=== PATIENT | female | born 1995 | race Caucasian/White ===

== ENCOUNTER 2020-12-13 04:12 | Emergency (ER) | payer OTHER ==
[2020-12-13 05:50] LABS: HEMOGLOBIN 11.1 gm/dl (12.3-15.3); RED BLOOD COUNT 3.29 M/UL (4.00-5.10); WHITE BLOOD COUNT 13.2 K/UL (4.5-11.0)
[2020-12-13 06:34] LABS: BUN/CREATININE RATIO 17 (0-10)
== END 2020-12-13 07:27 | disposition home or self-care (01) ==
LOC: ER1 04:12
PROVIDERS: Student in an Organized Health Care Education/Training Program
DX: O99.512 Diseases of the respiratory system complicating pregnancy, second trimester (principal); J40 Bronchitis, not specified as acute or chronic; O99.332 Smoking (tobacco) complicating pregnancy, second trimester; F17.210 Nicotine dependence, cigarettes, uncomplicated; Z3A.27 27 weeks gestation of pregnancy; Z20.822 Contact with and (suspected) exposure to COVID-19
CPT/HCPCS: 0240U; 71045; 80053; 82550; 82553; 83874; 84484; 85025; 99285

== ENCOUNTER 2021-03-20 00:50 | Emergency (ER) | payer OTHER ==
[2021-03-20 01:57] LABS: RED BLOOD COUNT 3.38 M/UL (4.00-5.10); WHITE BLOOD COUNT 9.5 K/UL (4.5-11.0)
[2021-03-20 02:17] LABS: BUN/CREATININE RATIO 18 (0-10)
== END 2021-03-20 03:25 | disposition home or self-care (01) ==
LOC: ER1 00:50
PROVIDERS: Physician Assistant
DX: O72.1 Other immediate postpartum hemorrhage (principal); O99.335 Smoking (tobacco) complicating the puerperium; F17.200 Nicotine dependence, unspecified, uncomplicated; Z91.040 Latex allergy status
CPT/HCPCS: 80053; 81001; 85025; 99284

== ENCOUNTER → 2021-03-20 | Outpatient (CLI) | payer OTHER | LOC: US 11:44 | DX: O72.1 Other immediate postpartum hemorrhage (principal) | CPT/HCPCS: 76856 ==